=== PATIENT | female | born 2000 | race Caucasian/White ===

== ENCOUNTER 2022-01-23 00:09 | Inpatient (IN) ==
[2022-01-23] MEDS ORDERED: Buffered Lidocaine 1% SYRIN 1 ml INTRADERM ONE (00:37)
[2022-01-23] MEDS ORDERED: Lactated Ringers 1000 ml BAG 1,000 ML IV ONE ×2 (00:37→02:40)
[2022-01-23 01:10] LABS: ABS Eosinophils 0.1 10^3/ul (0-0.6); ABS Monocytes 0.9 10^3/ul (0-0.8); ABS Neutrophils 7.6 10^3/ul (1.5-7.7); Hematocrit 33 % (35-47); Hemoglobin 11.3 g/dL (12.0-16.0); Lymphocyte % 25.7 %; Mean Corpuscular HGB Conc 35 g/dL (31-36); Mean Corpuscular Hemoglobin 34 pg (27-31); Mean Corpuscular Volume 99 fL (80-97); Mean Platelet Volume 9.8 fL (7.4-10.4); Platelet Count 162 10^3/uL (150-450); Red Blood Count 3.33 10^6 /uL (3.70-4.87); Red Cell Distribution Width 12 % (10-15); White Blood Count 11.6 10^3/uL (3.5-10.8)
[2022-01-23] MEDS ORDERED: Ondansetron 4 mg VIAL 2 MG/ML 2 ml VIAL IV PRN (01:14)
[2022-01-23] MEDS ORDERED: OBEPIDURAL (200 ML) 200 ML EPIDURAL ONE (01:18)
[2022-01-23] MEDS ORDERED: Lidocaine 1.5% EPI 1:200,000 30 ML SDV ONE ×2 (01:18→01:59)
[2022-01-23 01:26] LABS: Urine Benzodiazepine Screen None Detected (None Detect); Urine Cannabinoids Screen None Detected (None Detect); Urine Opiates Screen None Detected (None Detect)
[2022-01-23] MEDS ORDERED: Sodium Citrate/Citric Acid LIQ 15 ML UDC PO PRN (02:40)
[2022-01-23] MEDS ORDERED: Phenylephrine 40 mcg/mL 10mL (400mcg) SYRINGE IV PUSH PRN ×2 (02:40)
[2022-01-23] MEDS ORDERED: Lactated Ringers 1000 ml BAG 1,000 ML IV SCH ×2 (03:00→07:00)
[2022-01-23] MEDS ORDERED: OBEPIDURAL (200 ML) 200 ML EPIDURAL SCH (03:00)
[2022-01-23] MEDS ORDERED: Oxytocin in LR 20 UNITS/1,000 ML BAG IVPB ONE (04:38)
[2022-01-23] MEDS ORDERED: Oxytocin in LR 20 UNITS/1,000 ML BAG IVPB SCH (06:00)
[2022-01-23] MEDS ORDERED: Witch Hazel PAD JAR TOPICAL PRN (06:33)
[2022-01-23] MEDS ORDERED: Dibucaine 1% OINT 28.35 GM TUBE ONE (07:21)
[2022-01-23] MEDS ORDERED: Witch Hazel PAD JAR ONE (07:21)
[2022-01-23] MEDS: Dibucaine 1% OINT 28.35 GM TUBE PR PRN (08:10)
[2022-01-23] MEDS ORDERED: RHO D Immune Globulin (HUMAN) 300 MCG = 1,500 I.U. INJ IM ONE (17:28)
[2022-01-24 06:53] LABS: ABS Basophils 0.1 10^3/ul (0-0.2); ABS Eosinophils 0.2 10^3/ul (0-0.6); ABS Lymphocytes 3.1 10^3/ul (1.0-4.8); ABS Monocytes 0.7 10^3/ul (0-0.8); ABS Neutrophils 6.8 10^3/ul (1.5-7.7); Eosinophil % 1.6 %; Hematocrit 31 % (35-47); Hemoglobin 11.1 g/dL (12.0-16.0); Lymphocyte % 28.4 %; Mean Corpuscular HGB Conc 36 g/dL (31-36); Mean Corpuscular Hemoglobin 36 pg (27-31); Mean Corpuscular Volume 101 fL (80-97); Mean Platelet Volume 9.6 fL (7.4-10.4); Platelet Count 145 10^3/uL (150-450); Red Blood Count 3.11 10^6 /uL (3.70-4.87); Red Cell Distribution Width 12 % (10-15); White Blood Count 10.8 10^3/uL (3.5-10.8)
[2022-01-24] MEDS: Dibucaine 1% OINT 28.35 GM TUBE PR PRN (11:45)
[2022-01-25 07:41] VITALS: BP 129/62
== END 2022-01-25 11:27 | disposition home or self-care (01) | DRG 560 ==
LOC: MCHOBOUT 00:09 → MCHOB 00:42
PROVIDERS: ADMIT Advanced Practice Midwife; ATTEND Advanced Practice Midwife

== ENCOUNTER 2024-07-11 07:14 | Inpatient (IN) ==
[2024-07-11] MEDS ORDERED: Lidocaine 1% VIAL 10 MG/ML 30 ML VIAL INJ PRN (07:37)
[2024-07-11] MEDS: Lactated Ringers 1000 ml BAG 1,000 ML IV ONE ×2 (07:45→12:43)
[2024-07-11] MEDS: Ondansetron 4 mg VIAL 2 MG/ML 2 ml VIAL IV PRN (08:10)
[2024-07-11 08:25] LABS: ABS Basophils 0.1 10^3/uL (0.0-0.1); ABS Eosinophils 0.1 10^3/uL (0.0-0.5); ABS Monocytes 0.8 10^3/uL (0.0-0.9); ABS Neutrophils 8.9 10^3/uL (1.5-7.6); Eosinophil % 0.6 %; Hematocrit 35.5 % (35-45); Hemoglobin 11.9 g/dL (11.5-14.3); Lymphocyte % 17.1 %; Mean Corpuscular Hemoglobin 31.6 pg (27-33); Mean Corpuscular Hgb Conc 33.4 g/dL (31-36); Mean Corpuscular Volume 94.8 fL (80-97); Mean Platelet Volume 9.7 fL (7.5-11.2); Platelet Count 190 10^3/uL (150-450); Red Blood Count 3.75 10^6/uL (3.63-4.92); Red Cell Distribution Width 12.8 % (12-17); White Blood Count 11.8 10^3/uL (3.8-11.8)
[2024-07-11] MEDS: OBEPIDURAL (200 ML) 200 ML EPIDURAL SCH (08:56)
[2024-07-11] MEDS ORDERED: Phenylephrine 40 mcg/mL 10mL (400mcg) SYRINGE IV PUSH PRN ×2 (09:21)
[2024-07-11] MEDS ORDERED: Sodium Citrate/Citric Acid LIQ 15 ML UDC PO PRN (09:21)
[2024-07-11] MEDS: Lidocaine 1.5% EPI 1:200,000 30 ML SDV ONE (09:24)
[2024-07-11] MEDS: OBEPIDURAL (200 ML) 200 ML EPIDURAL ONE (09:45)
[2024-07-11] MEDS: Phenylephrine 40 mcg/mL 10mL (400mcg) SYRINGE ONE (09:45)
[2024-07-11] MEDS ORDERED: Glycerin ADULT 2.4 gm SUPP PR PRN (10:58)
[2024-07-11] MEDS ORDERED: Tetan/Diph/Pertus SYR(Tdap) 0.5 ML SYR(BOOSTRIX) use SYR contains LATEX IM ONE (11:04)
[2024-07-11] MEDS: Oxytocin in LR 0 MILLI.UNIT/0 ML BAG IV ONE (12:43)
[2024-07-11] MEDS: Lactated Ringers 1000 ml BAG 1,000 ML IV SCH (12:44)
[2024-07-11 14:23] LABS: Urine Benzodiazepine Screen None Detected (None Detect); Urine Cannabinoids Screen None Detected (None Detect); Urine Opiates Screen None Detected (None Detect)
[2024-07-11] MEDS: Dibucaine 1% OINT 28.35 GM TUBE PR PRN (20:11)
[2024-07-11] MEDS: Witch Hazel PAD JAR TOPICAL PRN (20:11)
[2024-07-12 04:29] VITALS: BP 120/62
[2024-07-12 08:11] LABS: ABS Eosinophils 0.1 10^3/uL (0.0-0.5); ABS Lymphocytes 2.1 10^3/uL (1.0-4.8); ABS Monocytes 0.6 10^3/uL (0.0-0.9); ABS Neutrophils 7.7 10^3/uL (1.5-7.6); Eosinophil % 0.7 %; Hematocrit 27.8 % (35-45); Hemoglobin 9.4 g/dL (11.5-14.3); Lymphocyte % 20.2 %; Mean Corpuscular Hgb Conc 33.8 g/dL (31-36); Mean Corpuscular Volume 94.5 fL (80-97); Mean Platelet Volume 9.6 fL (7.5-11.2); Platelet Count 172 10^3/uL (150-450); Red Blood Count 2.94 10^6/uL (3.63-4.92); Red Cell Distribution Width 12.9 % (12-17); White Blood Count 10.5 10^3/uL (3.8-11.8)
[2024-07-12] MEDS: Varicella Virus Vaccine Live 0.5 ML VIAL SUBCUT ONE (10:48)
[2024-07-12] MEDS: RHO D Immune Globulin (HUMAN) 300 MCG = 1,500 I.U. INJ IM PRN (10:50)
== END 2024-07-12 14:30 | disposition home or self-care (01) | DRG 560 ==
LOC: MCHOBOUT 07:14 → MCHOB 07:36
PROVIDERS: ADMIT Midwife; ATTEND Midwife